=== PATIENT | male | born 1995 | race Asian ===

== ENCOUNTER 2017-03-23 23:15 | Emergency (ER) | payer OTHER ==
[~2017-03-23] VITALS: Ht 185.4 cm; Wt 113.4 kg
[2017-03-23 23:28] VITALS: BP 141/63; PULSE 63; RESP 16; TEMP 98.7; O2SAT 98
--- NOTE | 2017-03-23 23:30 | NUR ---
Placed in room 6 . Placed on telemetry monitor, blood pressure machine and pulse oximeter. To gown for exam. Side rails up.
--- NOTE | 2017-03-23 23:40 | NUR ---
Patient to ER post mechanical injury at [facility]. Patient states that he felt his left patella moving outward and moved back. C/O left knee pain 6/10 worse with movement, mild swelling and reddness. No deformity noted at this time. AAOx4, unlabored breathing, no signs of acute distress.
--- NOTE | 2017-03-23 23:53 | NUR ---
ER MD Pang at bedside for evaluation
--- NOTE | 2017-03-24 00:43 | NUR ---
Left knee immobilizer placed by Della CUEVAS. Cap refill & pulses WNL.
--- NOTE | 2017-03-24 00:54 | NUR ---
Crutches properly fitted for patient by Della CUEVAS. Patient given crutch walking instructions and demonstration. Is able to demonstrate adequate crutch walking technique with crutches provided.
[2017-03-24 01:12] VITALS: BP 130/67; PULSE 68; RESP 16; TEMP 98.3; O2SAT 99
--- NOTE | 2017-03-24 01:12 | NUR ---
Patient given written and verbal discharge instructions and verbalizes understanding. ER MD Pang discussed with patient the results and treatment provided. Patient in stable condition. ID arm band removed. Patient educated on pain management and to follow up with PMD. Pain Scale 0/10. Opportunity for questions provided and answered.
== END 2017-03-24 01:12 | disposition home or self-care (01) ==
LOC: SED 23:15
DX: S83.92XA Sprain of unspecified site of left knee, initial encounter (principal); X58.XXXA Exposure to other specified factors, initial encounter; Y93.75 Activity, martial arts; Y92.89 Other specified places as the place of occurrence of the external cause; Y99.8 Other external cause status
CPT/HCPCS: 73564; 99284